=== PATIENT | female | born 1990 | race Hispanic/Latino ===

== ENCOUNTER 2017-04-08 21:25 | Emergency (ER) | payer SELFPAY ==
[~2017-04-08 21:25] MED LIST: FERR325T22 PO; IBUP-2077 PO
[2017-04-08 22:30] LABS: APPEARANCE,URINE Clear (CLEAR); BILIRUBIN,URINE Negative (NEGATIVE); COLOR,URINE Yellow (YELLOW); GLUCOSE, URINE (UA) Negative (NEGATIVE); KETONES,URINE Negative (NEGATIVE); LEUKOCYTE ESTERASE ,URINE Negative (NEGATIVE); NITRATE,URINE Negative (NEGATIVE); OCCULT BLOOD,URINE Small (NEGATIVE); PROTEIN,URINE Negative (NEGATIVE); UROBILINOGEN,URINE 0.2 mg/dL (0.2-1.0)
[2017-04-08 22:35] LABS: HCG,QUAL RESULT NEGATIVE (NEGATIVE)
[2017-04-08 22:41] LABS: BACTERIA,URINE Rare /HPF (None Seen); SQUAMOUS EPITHELIAL CELL,UR Rare /LPF (0-2); WBC,URINE 0-1 /HPF (0-1)
[2017-04-08] MEDS ORDERED: DEXAMETHASONE SOD PHOSPHATE 10MG/ML 1ML VIAL ONE (23:16)
[2017-04-08] MEDS ORDERED: DiphenhydrAMINE HCL 50 MG/ML VIAL ONE (23:16)
[2017-04-08] MEDS ORDERED: KETOROLAC TROMETHAMINE 30MG/ML ONE (23:16)
== END 2017-04-09 00:50 | disposition home or self-care (01) ==
LOC: EDH 21:25
DX: G43.909 Migraine, unspecified, not intractable, without status migrainosus (principal)
CPT/HCPCS: 81001; 81025; 96374; 96375; 99284; J1100; J1200; J1885

== ENCOUNTER 2017-12-08 21:27 | Emergency (ER) | payer OTHER | END 2017-12-08 23:14 | disposition home or self-care (01) | LOC: EDH 21:27 | DX: S16.1XXA Strain of muscle, fascia and tendon at neck level, initial encounter (principal); G43.909 Migraine, unspecified, not intractable, without status migrainosus; V57.5XXA Driver of pick-up truck or van injured in collision with fixed or stationary object in traffic accident, initial encounter; Y93.89 Activity, other specified; Y92.488 Other paved roadways as the place of occurrence of the external cause; Y99.8 Other external cause status ==

== ENCOUNTER 2018-02-19 10:47 | Emergency (ER) | payer OTHER ==
[2018-02-19 11:47] LABS: RAPID GROUP A STREP NEGATIVE (NEGATIVE)
== END 2018-02-19 12:29 | disposition home or self-care (01) ==
LOC: EDH 10:47
DX: J10.1 Influenza due to other identified influenza virus with other respiratory manifestations (principal); F41.9 Anxiety disorder, unspecified; Z98.51 Tubal ligation status
CPT/HCPCS: 87804; 87880